=== PATIENT | female | born 1985 | race Caucasian/White ===

== ENCOUNTER 2021-02-12 10:52 | Emergency (ER) | payer SELFPAY ==
--- NOTE | 2021-02-12 10:57 | EDM.PDOC ---
ED HPI GENERAL MEDICAL PROBLEM - General Chief Complaint: Behavioral/Psych Stated Complaint: MENTAL HEALTH Time Seen by Provider: 02/12/21 10:56 Source of Information: Reports: Patient, Other (Mental health worker) History Limitations: Reports: Other (Delusional) - History of Present Illness INITIAL COMMENTS - FREE TEXT/NARRATIVE: 35-year-old female past medical history schizophrenia presents for psychosis. History is from both patient and [facility] services social services aide. Per [facility] social welfare research worker patient called the police and was brought to her for mental health evaluation. Patient expressed delusional believes about people watching her, reflections in her ceiling vents, people reading her mind, hallucinating her , stating she was a cat and that she was about to have kittens. She was noted to have very scattered thoughts and was tearful at times. On my interview patient confirms these delusions. She states that her killed himself earlier this year and that she stopped taking her psychiatric medications soon after in October. She notes that she has been hospitalized in the past for her schizophrenia. She states that she is overwhelmed and worried that she is going to do something bad. She does deny suicidal or homicidal ideation. She did endorse to mental health general administrator that she used methamphetamine yesterday. "everywhere" Pain Score (Numeric/FACES): 8 - Related Data Allergies Allergy/AdvReac Type Severity Reaction Status Date / Time No Known Allergies Allergy Verified 02/12/21 11:08 Home Meds: Home Meds . [No Known Home Meds] 02/12/21 [History] ED ROS GENERAL - Review of Systems Review Of Systems: Comprehensive ROS is negative, except as noted in HPI. ED EXAM, GENERAL - Physical Exam Exam: See Below Exam Limited By: No Limitations General Appearance: Alert, WD/WN, Anxious Eye Exam: Bilateral Eye: EOMI, PERRL Ears: Hearing Grossly Normal Throat/Mouth: Normal Voice, No Airway Compromise Head: Atraumatic, Normocephalic Neck: Normal Inspection Respiratory/Chest: No Respiratory Distress, Lungs Clear, Normal Breath Sounds, No Accessory Muscle Use Cardiovascular: Normal Peripheral Pulses, Regular Rate, Rhythm GI/Abdominal: Soft, Non-Tender Extremities: Normal Inspection Neurological: Alert Psychiatric: Anxious, Tearful, Other (delusional thoughts) Skin Exam: Warm, Dry, Other (multiple skin excoriations consistent with methamphetamine abuse; scabbed lesion on L breast roughly 1-cm without surrounding erythema) Course - Vital Signs Last Recorded V/S: Last Vital Signs Temp 97.9 F 02/12/21 11:09 Pulse 90 02/12/21 11:09 Resp 18 02/12/21 11:09 BP 179/101 H 02/12/21 11:09 Pulse Ox 98 02/12/21 11:09 - Orders/Labs/Meds Orders: Active Orders 24 hr Category Date Time Status CULTURE URINE [MREF] Stat Lab 02/12/21 11:22 Received Labs: Laboratory Tests 02/12/21 02/12/21 02/12/21 Range/Units 11:00 11:14 11:14 WBC 8.76 (4.0-11.0) K/uL RBC 4.54 (4.30-5.90) M/uL Hgb 14.5 (12.0-16.0) g/dL Hct 40.3 (36.0-46.0) % MCV 88.8 (80.0-98.0) fL MCH 31.9 (27.0-32.0) pg MCHC 36.0 (31.0-37.0) g/dL RDW Std Deviation 39.7 (28.0-62.0) fl RDW Coeff of Romulo 12 (11.0-15.0) % Plt Count 269 (150-400) K/uL MPV 9.10 (7.40-12.00) fL Neut % (Auto) 62.2 (48.0-80.0) % Lymph % (Auto) 24.1 (16.0-40.0) % Clayton % (Auto) 12.3 (0.0-15.0) % Eos % (Auto) 0.7 (0.0-7.0) % Baso % (Auto) 0.7 (0.0-1.5) % Neut # (Auto) 5.5 (1.4-5.7) K/uL Lymph # (Auto) 2.1 (0.6-2.4) K/uL Clayton # (Auto) 1.1 H (0.0-0.8) K/uL Eos # (Auto) 0.1 (0.0-0.7) K/uL Baso # (Auto) 0.1 (0.0-0.1) K/uL Nucleated RBC % 0.0 /100WBC Nucleated RBCs # 0 K/uL Sodium 141 (136-145) mmol/L Potassium 3.1 L (3.5-5.1) mmol/L Chloride 103 (98-107) mmol/L Carbon Dioxide 25.5 (21.0-32.0) mmol/L BUN 9 (7.0-18.0) mg/dL Creatinine 0.8 (0.6-1.0) mg/dL Est Cr Clr Drug Dosing TNP Estimated GFR (MDRD) > 60.0 ml/min Glucose 111 H (74-106) mg/dL Calcium 8.8 (8.5-10.1) mg/dL Total Bilirubin 0.9 (0.2-1.0) mg/dL AST 28 (15-37) IU/L ALT 38 (14-63) IU/L Alkaline Phosphatase 58 (46-116) U/L Total Protein 7.2 (6.4-8.2) g/dL Albumin 4.0 (3.4-5.0) g/dL Globulin 3.2 (2.6-4.0) g/dL Albumin/Globulin Ratio 1.3 (0.9-1.6) TSH, Ultra Sensitive 1.61 (0.36-3.74) uIU/mL Urine Color Urine Appearance Urine pH (5.0-8.0) Ur Specific Mentor (1.001-1.035) Urine Protein (NEGATIVE) mg/dL Urine Glucose (UA) (NEGATIVE) mg/dL Urine Ketones (NEGATIVE) mg/dL Urine Occult Blood (NEGATIVE) Urine Nitrite (NEGATIVE) Urine Bilirubin (NEGATIVE) Urine Urobilinogen (<2.0) EU/dL Ur Leukocyte Esterase (NEGATIVE) Urine RBC (0-2/HPF) Urine WBC (0-5/HPF) Ur Epithelial Cells (NONE-FEW) Urine Bacteria (NEGATIVE) Urine Mucus (NONE-MOD) Urine HCG, Qual (NEGATIVE) Salicylates 2.3 (0-20) mg/dL Urine Opiates Screen (NEGATIVE) Ur Oxycodone Screen (NEGATIVE) Urine Methadone Screen (NEGATIVE) Acetaminophen <2.0 ug/mL Ur Barbiturates Screen (NEGATIVE) Ur Phencyclidine Scrn (NEGATIVE) Ur Amphetamine Screen (NEGATIVE) U Methamphetamines Scrn (NEGATIVE) U Benzodiazepines Scrn (NEGATIVE) U Cocaine Metab Screen (NEGATIVE) U Marijuana (THC) Screen (NEGATIVE) Ethyl Alcohol < 3.0 mg/dL SARS-CoV-2 RNA (GREG) NEGATIVE (NEGATIVE) 02/12/21 02/12/21 02/12/21 Range/Units 11:22 11:22 11:22 WBC (4.0-11.0) K/uL RBC (4.30-5.90) M/uL Hgb (12.0-16.0) g/dL Hct (36.0-46.0) % MCV (80.0-98.0) fL MCH (27.0-32.0) pg MCHC (31.0-37.0) g/dL RDW Std Deviation (28.0-62.0) fl RDW Coeff of Romulo (11.0-15.0) % Plt Count (150-400) K/uL MPV (7.40-12.00) fL Neut % (Auto) (48.0-80.0) % Lymph % (Auto) (16.0-40.0) % Clayton % (Auto) (0.0-15.0) % Eos % (Auto) (0.0-7.0) % Baso % (Auto) (0.0-1.5) % Neut # (Auto) (1.4-5.7) K/uL Lymph # (Auto) (0.6-2.4) K/uL Clayton # (Auto) (0.0-0.8) K/uL Eos # (Auto) (0.0-0.7) K/uL Baso # (Auto) (0.0-0.1) K/uL Nucleated RBC % /100WBC Nucleated RBCs # K/uL Sodium (136-145) mmol/L Potassium (3.5-5.1) mmol/L Chloride (98-107) mmol/L Carbon Dioxide (21.0-32.0) mmol/L BUN (7.0-18.0) mg/dL Creatinine (0.6-1.0) mg/dL Est Cr Clr Drug Dosing Estimated GFR (MDRD) ml/min Glucose (74-106) mg/dL Calcium (8.5-10.1) mg/dL Total Bilirubin (0.2-1.0) mg/dL AST (15-37) IU/L ALT (14-63) IU/L Alkaline Phosphatase (46-116) U/L Total Protein (6.4-8.2) g/dL Albumin (3.4-5.0) g/dL Globulin (2.6-4.0) g/dL Albumin/Globulin Ratio (0.9-1.6) TSH, Ultra Sensitive (0.36-3.74) uIU/mL Urine Color YELLOW Urine Appearance SLT CLOUDY Urine pH 6.0 (5.0-8.0) Ur Specific Mentor >= 1.030 (1.001-1.035) Urine Protein TRACE H (NEGATIVE) mg/dL Urine Glucose (UA) NEGATIVE (NEGATIVE) mg/dL Urine Ketones 15 H (NEGATIVE) mg/dL Urine Occult Blood TRACE-INTACT H (NEGATIVE) Urine Nitrite POSITIVE H (NEGATIVE) Urine Bilirubin SMALL H (NEGATIVE) Urine Urobilinogen 1.0 (<2.0) EU/dL Ur Leukocyte Esterase TRACE H (NEGATIVE) Urine RBC 0-5 (0-2/HPF) Urine WBC 5-10 (0-5/HPF) Ur Epithelial Cells MODERATE (NONE-FEW) Urine Bacteria 2+ H (NEGATIVE) Urine Mucus MODERATE (NONE-MOD) Urine HCG, Qual NEGATIVE (NEGATIVE) Salicylates (0-20) mg/dL Urine Opiates Screen NEGATIVE (NEGATIVE) Ur Oxycodone Screen NEGATIVE (NEGATIVE) Urine Methadone Screen NEGATIVE (NEGATIVE) Acetaminophen ug/mL Ur Barbiturates Screen NEGATIVE (NEGATIVE) Ur Phencyclidine Scrn NEGATIVE (NEGATIVE) Ur Amphetamine Screen POSITIVE (NEGATIVE) U Methamphetamines Scrn POSITIVE (NEGATIVE) U Benzodiazepines Scrn NEGATIVE (NEGATIVE) U Cocaine Metab Screen NEGATIVE (NEGATIVE) U Marijuana (THC) Screen POSITIVE (NEGATIVE) Ethyl Alcohol mg/dL SARS-CoV-2 RNA (GREG) (NEGATIVE) Meds: Medications Discontinued Medications Generic Name Dose Route Start Last Admin Trade Name Freq PRN Reason Stop Dose Admin Cephalexin 500 mg 02/12/21 12:00 02/12/21 12:09 Cephalexin 500 Mg Cap PO 02/12/21 12:01 500 mg ONETIME ONE Administration Olanzapine 10 mg/ Sterile 2.1 mls @ 999 mls/hr 02/12/21 11:12 02/12/21 11:17 Water IM 02/12/21 11:13 999 mls/hr ONETIME ONE Administration Potassium Chloride 40 meq 02/12/21 12:04 02/12/21 12:09 Potassium Chloride 10% 20 Meq/15 Ml Soln 30 Ml Ud Cup PO 02/12/21 12:05 40 meq ONETIME ONE Administration - Re-Assessments/Exams Free Text/Narrative Re-Assessment/Exam: 02/12/21 11:16 Patient presents with psychosis likely secondary to known history of schizophrenia. Patient will require hospitalization. Will get psychiatric clearance labs. Will give a dose of IM Zyprexa to help with symptoms while in the emergency department. 02/12/21 12:01 Patient with evidence of urinary tract infection. Keflex 500 mg ordered in the emergency department. 02/12/21 12:06 Patient is medically cleared for psychiatric admission. She was slightly hypokalemic to 3.1 so 40meq K ordered. Will reach out to psychiatry hospital for transfer of care. 02/12/21 12:10 [facility] does not have any bed availabilities; [facility] does have a bed. 02/12/21 12:24 Alice Thomas CURB SUPERVISOR at [facility] agrees to admit patient under her service Departure - Departure Time of Disposition: 12:24 Disposition: DC/Tfer to Psych Hosp/Unit 65 Condition: Fair Clinical Impression: Psychosis Qualifiers: Psychosis type: schizophrenia Schizophrenia type: unspecified Qualified Code(s): F20.9 - Schizophrenia, unspecified - Discharge Information Referrals: PCP,None [Primary Care Provider] - Forms: ED Department Discharge Sepsis Event Note (ED) - Focused Exam Vital Signs: Vital Signs Temp Pulse Resp BP Pulse Ox 02/12/21 11:09 97.9 F 90 18 179/101 H 98
[2021-02-12] MEDS ORDERED: OLANZapine 10 MG in Water For Injection, Sterile 2.1 ML IM ONE (11:12)
[2021-02-12 11:50] LABS: ACETAMINOPHEN <2.0 ug/mL; BLOOD UREA NITROGEN,BUN 9 mg/dL (7.0-18.0); CARBON DIOXIDE,CO2 25.5 mmol/L (21.0-32.0); CHLORIDE,CL 103 mmol/L (98-107); GLUCOSE RANDOM 111 mg/dL (74-106); POTASSIUM,K 3.1 mmol/L (3.5-5.1); SODIUM,NA 141 mmol/L (136-145)
[2021-02-12] MEDS ORDERED: Cephalexin 500 MG Cap PO ONE (12:00)
[2021-02-12] MEDS ORDERED: Potassium Chloride 10% 20 MEQ/15 ML Soln 30 ML UD Cup PO ONE (12:04)
== END 2021-02-12 14:48 ==
LOC: MW.ED 10:52
DX: F20.9 Schizophrenia, unspecified (principal); Z20.822 Contact with and (suspected) exposure to COVID-19
CPT/HCPCS: 36415; 80053; 80143; 80179; 80305; 80307; 81001; 81025; 84443; 85025; 87086; 87088; 87186; 87635; 96372; 99284; A9270; J3490; U0002

== ENCOUNTER 2021-09-14 14:37 | Emergency (ER) | payer SELFPAY ==
[2021-09-14] MEDS ORDERED: LORazepam 2 MG/ML Syringe IVPUSH ONE (15:01)
[2021-09-14] MEDS ORDERED: LORazepam 2 MG/ML Syringe IM ONE ×2 (15:13→15:35)
[2021-09-14] MEDS ORDERED: LORazepam 2 MG/ML SDV IM ONE (15:30)
[2021-09-14] MEDS ORDERED: LORazepam 2 MG/ML SDV ONE (15:30)
[2021-09-14 15:50] LABS: ACETAMINOPHEN <2.0 ug/mL; BLOOD UREA NITROGEN,BUN 11 mg/dL (7.0-18.0); CARBON DIOXIDE,CO2 20.8 mmol/L (21.0-32.0); CHLORIDE,CL 105 mmol/L (98-107); GLUCOSE RANDOM 92 mg/dL (74-106); POTASSIUM,K 3.3 mmol/L (3.5-5.1); SODIUM,NA 141 mmol/L (136-145)
== END 2021-09-14 17:42 ==
LOC: MW.ED 14:37
DX: F20.9 Schizophrenia, unspecified (principal); F15.20 Other stimulant dependence, uncomplicated; Z20.822 Contact with and (suspected) exposure to COVID-19
CPT/HCPCS: 36415; 80053; 80143; 80179; 80305; 80307; 81001; 81025; 83735; 84443; 85025; 87635; 96372; 99284; J2060; U0002

== ENCOUNTER 2021-09-16 16:53 | Emergency (ER) | payer SELFPAY | END 2021-09-16 17:41 | disposition left against medical advice (07) | LOC: MW.ED 16:53 | DX: Z53.21 Procedure and treatment not carried out due to patient leaving prior to being seen by health care provider (principal) ==

== ENCOUNTER 2021-11-04 21:47 | Emergency (ER) | payer SELFPAY | END 2021-11-04 23:01 | disposition left against medical advice (07) | LOC: MW.ED 21:47 | DX: Z53.21 Procedure and treatment not carried out due to patient leaving prior to being seen by health care provider (principal) ==

== ENCOUNTER 2021-11-07 18:01 | Emergency (ER) | payer SELFPAY | END 2021-11-07 22:01 | disposition left against medical advice (07) | LOC: MW.ED 18:01 | DX: Z53.21 Procedure and treatment not carried out due to patient leaving prior to being seen by health care provider (principal) ==

== ENCOUNTER 2021-11-08 14:05 | Emergency (ER) | payer SELFPAY ==
[2021-11-08] MEDS ORDERED: Dexamethasone 10 MG/ML SDV IVPUSH ONE (14:20)
[2021-11-08] MEDS ORDERED: LORazepam 1 MG Tab PO ONE (14:54)
== END 2021-11-08 15:53 | disposition home or self-care (01) ==
LOC: MW.ED 14:05
DX: F41.9 Anxiety disorder, unspecified (principal); Z79.899 Other long term (current) drug therapy; Z88.0 Allergy status to penicillin; Z88.8 Allergy status to other drugs, medicaments and biological substances
CPT/HCPCS: 99283; A9270; 99284

== ENCOUNTER 2021-12-21 09:30 | Emergency (ER) | payer SELFPAY ==
[2021-12-21] MEDS ORDERED: LORazepam 1 MG Tab PO ONE (10:52)
== END 2021-12-21 11:16 | disposition home or self-care (01) ==
LOC: MW.ED 09:30
DX: F41.9 Anxiety disorder, unspecified (principal); Z88.0 Allergy status to penicillin; Z88.1 Allergy status to other antibiotic agents; Z79.899 Other long term (current) drug therapy; Z90.710 Acquired absence of both cervix and uterus
CPT/HCPCS: 99282; 99283

== ENCOUNTER 2021-12-22 16:43 | Emergency (ER) | payer SELFPAY ==
[2021-12-22] MEDS ORDERED: Lidocaine 1% 5 ML VIAL INJECT ONE (18:04)
[2021-12-22] MEDS ORDERED: Acetaminophen/HYDROcodone 325-5 MG Tab PO ONE (19:11)
[2021-12-22] MEDS: Ketorolac 60 MG/2 ML SDV IM ONE ×2 (19:25→19:47)
== END 2021-12-22 19:48 | disposition home or self-care (01) ==
LOC: MW.ED 16:43
DX: S01.81XA Laceration without foreign body of other part of head, initial encounter (principal); Z88.0 Allergy status to penicillin; Z88.1 Allergy status to other antibiotic agents; Y04.0XXA Assault by unarmed brawl or fight, initial encounter
CPT/HCPCS: 12011; 70450; 70486; 72125; 99283; A9270; 99284; J1885

== ENCOUNTER 2021-12-24 09:17 | Emergency (ER) | payer SELFPAY ==
[2021-12-24] MEDS ORDERED: OLANZapine 5 MG Tab.DIS PO STA (09:56)
[2021-12-24 10:39] LABS: ACETAMINOPHEN <2.0 ug/mL; BLOOD UREA NITROGEN,BUN 8 mg/dL (7.0-18.0); CARBON DIOXIDE,CO2 28.3 mmol/L (21.0-32.0); CHLORIDE,CL 103 mmol/L (98-107); GLUCOSE RANDOM 85 mg/dL (74-106); POTASSIUM,K 3.9 mmol/L (3.5-5.1); SODIUM,NA 139 mmol/L (136-145)
[2021-12-24 10:41] LABS: ESTIMATED GFR 75 mL/min (>60)
[2021-12-24] MEDS ORDERED: OLANZapine 5 MG Tab PO ONE (22:02)
[2021-12-25] MEDS ORDERED: ARIPiprazole 10 MG Tab PO STA (08:11)
[2021-12-25] MEDS ORDERED: OLANZapine 5 MG Tab ONE ×2 (10:53→18:46)
[2021-12-25] MEDS ORDERED: OLANZapine 5 MG Tab PO ONE ×3 (10:54→18:45)
[2021-12-25] MEDS ORDERED: Nicotine 21 MG/24 Hr Patch TRDERM ONE ×2 (11:00→17:43)
[2021-12-25] MEDS ORDERED: Nicotine Polacrilex 2 MG Gum CHEW STA (11:08)
[2021-12-25] MEDS: Nicotine Polacrilex 4 MG Gum CHEW STA ×2 (11:39→16:15)
[2021-12-25] MEDS ORDERED: OLANZapine 5 MG Tab.DIS PO ONE (16:27)
[2021-12-25] MEDS ORDERED: LORazepam 2 MG/ML SDV IM ONE (17:31)
== END 2021-12-25 18:45 | disposition still patient (30) ==
LOC: MW.ED 09:17
DX: F20.9 Schizophrenia, unspecified (principal); F19.10 Other psychoactive substance abuse, uncomplicated; Z88.0 Allergy status to penicillin; Z88.1 Allergy status to other antibiotic agents; Z79.899 Other long term (current) drug therapy; Z90.710 Acquired absence of both cervix and uterus; Z20.822 Contact with and (suspected) exposure to COVID-19
CPT/HCPCS: 36415; 80053; 80143; 80179; 80305; 80307; 81003; 81025; 84443; 85025; 87635; 96372; 99284; A9270; J2060; 99285; U0002

== ENCOUNTER 2022-02-20 10:55 | Emergency (ER) | payer BC, MEDICAID ==
[2022-02-20] MEDS ORDERED: Haloperidol Lactate 5 MG/ML SDV IM ONE (10:56)
[2022-02-20] MEDS ORDERED: diphenhydrAMINE 50 MG/ML SDV IM ONE (10:57)
[2022-02-20] MEDS ORDERED: diphenhydrAMINE 50 MG/ML SDV ONE (10:57)
[2022-02-20] MEDS ORDERED: Haloperidol Lactate 5 MG/ML SDV ONE (10:57)
[2022-02-20] MEDS ORDERED: LORazepam 2 MG/ML SDV IM ONE (10:57)
[2022-02-20] MEDS ORDERED: LORazepam 2 MG/ML SDV ONE (10:58)
[2022-02-20 13:09] LABS: ACETAMINOPHEN <2.0 ug/mL; BLOOD UREA NITROGEN,BUN 6 mg/dL (7.0-18.0); CARBON DIOXIDE,CO2 26.5 mmol/L (21.0-32.0); CHLORIDE,CL 104 mmol/L (98-107); GLUCOSE RANDOM 90 mg/dL (74-106); SODIUM,NA 141 mmol/L (136-145)
[2022-02-20 13:25] LABS: ESTIMATED GFR 98 mL/min (>60)
[2022-02-21] MEDS ORDERED: Water For Injection, Sterile 20 ML SDV INJECT ONE (08:38)
[2022-02-21] MEDS ORDERED: Ziprasidone Mesylate 20 MG Vial IM ONE (08:38)
== END 2022-02-21 09:00 ==
LOC: MW.ED 10:55
DX: F23 Brief psychotic disorder (principal); F15.10 Other stimulant abuse, uncomplicated; Z20.822 Contact with and (suspected) exposure to COVID-19; Z90.710 Acquired absence of both cervix and uterus; Z79.899 Other long term (current) drug therapy; Z88.0 Allergy status to penicillin; Z88.1 Allergy status to other antibiotic agents
CPT/HCPCS: 36415; 80053; 80143; 80179; 80305; 80307; 81001; 83735; 84443; 84703; 85025; 87635; 93005; 96372; 99285; J1200; J1630; J2060; J3486; 93010; U0002

== ENCOUNTER 2022-03-13 18:13 | Emergency (ER) | payer MEDICAID, OTHER ==
[2022-03-13] MEDS ORDERED: Sodium Chloride 0.9% 1,000 ML IV ONE (18:18)
[2022-03-13] MEDS ORDERED: diphenhydrAMINE 50 MG/ML SDV IVPUSH ONE (18:19)
[2022-03-13] MEDS ORDERED: Haloperidol Lactate 5 MG/ML SDV IM ONE (18:19)
[2022-03-13] MEDS ORDERED: LORazepam 2 MG/ML SDV IM ONE (18:19)
[2022-03-13 19:01] LABS: ACETAMINOPHEN <2.0 ug/mL; BLOOD UREA NITROGEN,BUN 9 mg/dL (7.0-18.0); CARBON DIOXIDE,CO2 23.7 mmol/L (21.0-32.0); CHLORIDE,CL 105 mmol/L (98-107); ESTIMATED GFR 85 mL/min (>60); GLUCOSE RANDOM 101 mg/dL (74-106); SODIUM,NA 139 mmol/L (136-145)
[2022-03-13] MEDS ORDERED: Potassium Chloride 20 MEQ Tab.ER PO ONE (21:18)
[2022-03-14] MEDS ORDERED: Potassium Chloride 20 MEQ Tab.ER ONE (15:21)
== END 2022-03-14 15:54 | disposition home or self-care (01) ==
LOC: MW.ED 18:13
DX: E87.6 Hypokalemia (principal); F20.9 Schizophrenia, unspecified; F19.10 Other psychoactive substance abuse, uncomplicated; Z88.0 Allergy status to penicillin; Z88.1 Allergy status to other antibiotic agents; Z79.899 Other long term (current) drug therapy
CPT/HCPCS: 36415; 80053; 80143; 80179; 80305; 80307; 81003; 81025; 84443; 85025; 93005; 96361; 96372; 96374; 99285; A9270; J1200; J1630; J2060; J7030

== ENCOUNTER 2022-03-19 12:56 | Emergency (ER) | payer MEDICAID ==
[2022-03-19] MEDS ORDERED: LORazepam 1 MG Tab PO ONE (14:09)
== END 2022-03-19 14:26 | disposition home or self-care (01) ==
LOC: MW.ED 12:56
DX: F41.9 Anxiety disorder, unspecified (principal); Z90.710 Acquired absence of both cervix and uterus; Z88.0 Allergy status to penicillin; Z88.1 Allergy status to other antibiotic agents; Z79.899 Other long term (current) drug therapy
CPT/HCPCS: 99283; A9270

== ENCOUNTER 2022-08-03 17:39 | Emergency (ER) | payer MEDICAID ==
[2022-08-03] MEDS ORDERED: traMADol 50 MG Tab PO ONE (18:21)
[2022-08-03] MEDS ORDERED: Sulfamethoxazole/Trimethoprim 800-160 MG Tab PO ONE (18:21)
[2022-08-03 20:03] LABS: C. TRACHOMATIS BY PCR NOT DETECTED; N. GONORRHOEAE BY PCR NOT DETECTED
== END 2022-08-03 18:34 | disposition home or self-care (01) ==
LOC: MW.ED 17:39
DX: L73.9 Follicular disorder, unspecified (principal); F17.210 Nicotine dependence, cigarettes, uncomplicated; Z88.0 Allergy status to penicillin; Z88.8 Allergy status to other drugs, medicaments and biological substances; Z88.1 Allergy status to other antibiotic agents
CPT/HCPCS: 87480; 87491; 87510; 87529; 87591; 87660; 99283; A9270

== ENCOUNTER 2022-08-08 14:20 | Emergency (ER) | payer MEDICAID ==
[2022-08-08] MEDS ORDERED: Sodium Chloride 0.9% 1,000 ML IV ONE (14:34)
[2022-08-08] MEDS ORDERED: Ketorolac 30 MG/ML SDV IVPUSH ONE (14:34)
[2022-08-08] MEDS ORDERED: Ondansetron 4 MG/2 ML SDV IVPUSH ONE (14:34)
[2022-08-08 15:34] LABS: CARBON DIOXIDE,CO2 27.3 mmol/L (21.0-32.0); POTASSIUM,K 3.7 mmol/L (3.5-5.1)
[2022-08-08 15:35] LABS: CORONAVIRUS COVID-19 NAA NEGATIVE (NEGATIVE); INFLUENZA A NAA NEGATIVE (NEGATIVE); INFLUENZA B NAA NEGATIVE (NEGATIVE)
== END 2022-08-08 18:07 | disposition home or self-care (01) ==
LOC: MW.ED 14:20
DX: R53.83 Other fatigue (principal); F19.10 Other psychoactive substance abuse, uncomplicated; Z88.0 Allergy status to penicillin; Z88.1 Allergy status to other antibiotic agents; Z20.822 Contact with and (suspected) exposure to COVID-19
CPT/HCPCS: 0240U; 36415; 80053; 80305-QW; 81001; 81025; 83605; 83690; 85025; 87040; 96361; 96374; 96375; 99283; 99284-25; J1885; J2405; J7030

== ENCOUNTER 2023-06-25 17:53 | Emergency (ER) | payer SELFPAY ==
[2023-06-25] MEDS: OLANZapine 10 MG in Water For Injection, Sterile 2.1 ML IM ONE (18:05)
== END 2023-06-25 19:05 | disposition left against medical advice (07) ==
LOC: MW.ED 17:53
DX: R44.0 Auditory hallucinations (principal); R44.1 Visual hallucinations; Z88.1 Allergy status to other antibiotic agents; Z88.0 Allergy status to penicillin; Z79.899 Other long term (current) drug therapy
CPT/HCPCS: 93005; 96372; 99285; J2405; 93010; 99283; J3490

== ENCOUNTER → 2023-10-24 | Emergency (ER) | payer MEDICAID ==
[2023-10-24 17:12] LABS: BASOPHILS ABSOLUTE AUTO 0.11 K/uL (0.00-0.20); BASOPHILS PERCENT AUTO 0.9 % (0.0-1.0); EOSINOPHILS PERCENT AUTO 1.6 % (0.0-6.0); HEMATOCRIT 43.7 % (37.0-47.0); HEMOGLOBIN 15.4 g/dL (12.0-16.0); IMMATURE GRAN ABSOLUTE AUTO 0.04 K/uL (0.00-0.05); IMMATURE GRAN PERCENT AUTO 0.3 % (0.0-0.4); LYMPHOCYTES ABSOLUTE AUTO 3.38 K/uL (1.00-4.80); MEAN CORPUSCULAR HEMOGLOBIN 31.1 pg (28.0-32.0); MEAN CORPUSCULAR HGB CONC 35.2 g/dL (32.0-36.0); MEAN CORPUSCULAR VOLUME 88.3 fL (83.0-99.0); MEAN PLATELET VOLUME 8.4 fL (9.4-12.3); MONOCYTES ABSOLUTE AUTO 1.02 K/uL (0.00-0.80); MONOCYTES PERCENT AUTO 8.2 % (0.0-8.0); NEUTROPHILS ABSOLUTE AUTO 7.75 K/uL (1.80-7.70); PLATELET COUNT,PLT 289 K/uL (150-400); RED BLOOD CELL COUNT 4.95 M/uL (4.10-5.30)
[2023-10-24] MEDS: LORazepam 1 MG Tab PO ONE (17:16)
[2023-10-24] MEDS: Sodium Chloride 0.9% 1,000 ML IV ONE (17:18)
[2023-10-24 17:57] LABS: A/G RATIO 1.1 (0.9-1.6); ALBUMIN 3.9 g/dL (3.4-5.0); BILIRUBIN TOTAL 0.5 mg/dL (0.2-1.0); CARBON DIOXIDE,CO2 26.7 mmol/L (21.0-32.0); EST CRCL DRUG DOSING (CG) 63.1 mL/min; POTASSIUM,K 4.7 mmol/L (3.5-5.1); PROTEIN TOTAL,TP 7.5 g/dL (6.4-8.2); TSH ULTRASENSITIVE 1.19 uIU/mL (0.36-3.74)
[2023-10-24] MEDS: OLANZapine 5 MG Tab.DIS PO ONE (18:41)
== END | disposition home or self-care (01) ==
LOC: MW.ED 16:18
DX: R45.4 Irritability and anger (principal); F17.210 Nicotine dependence, cigarettes, uncomplicated; Z75.8 Other problems related to medical facilities and other health care; Z88.0 Allergy status to penicillin; Z88.1 Allergy status to other antibiotic agents; Z88.8 Allergy status to other drugs, medicaments and biological substances; Z90.710 Acquired absence of both cervix and uterus
CPT/HCPCS: 36415; 80053; 84443; 85025; 99283; A9270; J7030

== ENCOUNTER 2024-02-21 10:59 | Emergency (ER) | payer MEDICAID ==
[2024-02-21] MEDS: OLANZapine 5 MG Tab PO ONE ×2 (12:14→12:42)
[2024-02-21] MEDS: LORazepam 1 MG Tab PO ONE (12:14)
== END 2024-02-21 14:26 | disposition home or self-care (01) ==
LOC: MW.ED 10:59
DX: F20.9 Schizophrenia, unspecified (principal); Z90.49 Acquired absence of other specified parts of digestive tract; Z79.899 Other long term (current) drug therapy; Z88.1 Allergy status to other antibiotic agents; Z88.0 Allergy status to penicillin
CPT/HCPCS: 99284; A9270; 99283

== ENCOUNTER 2024-02-22 18:26 | Emergency (ER) | payer MEDICAID ==
[2024-02-22] MEDS ORDERED: Sodium Chloride 0.9% 10 ML Syringe FLUSH PRN (18:39)
[2024-02-22] MEDS ORDERED: Sodium Chloride 0.9% 2.5 ML Syringe FLUSH PRN (18:39)
[2024-02-22] MEDS: Ziprasidone Mesylate 20 MG in Water For Injection, Sterile 1.2 ML IM ONE (18:55)
[2024-02-22] MEDS: LORazepam 1 MG Tab PO ONE (19:43)
[2024-02-22 19:54] LABS: APPEARANCE,URINE CLEAR; BILIRUBIN,URINE NEGATIVE (NEGATIVE); COLOR,URINE YELLOW; GLUCOSE,URINE NEGATIVE (NEGATIVE); KETONES,URINE NEGATIVE (NEGATIVE); LEUKOCYTE ESTERASE,URINE SMALL (NEGATIVE); NITRITE,URINE NEGATIVE (NEGATIVE); OCCULT BLOOD,URINE NEGATIVE (NEGATIVE); PROTEIN,URINE NEGATIVE (NEGATIVE); UROBILINOGEN,URINE 0.2 EU/dL (<2.0)
[2024-02-22 19:57] LABS: BASOPHILS ABSOLUTE AUTO 0.08 K/uL (0.00-0.20); BASOPHILS PERCENT AUTO 0.7 % (0.0-1.0); EOSINOPHILS ABSOLUTE AUTO 0.06 K/uL (0.00-0.45); EOSINOPHILS PERCENT AUTO 0.5 % (0.0-6.0); HEMATOCRIT 42.7 % (37.0-47.0); IMMATURE GRAN ABSOLUTE AUTO 0.03 K/uL (0.00-0.05); IMMATURE GRAN PERCENT AUTO 0.3 % (0.0-0.4); LYMPHOCYTES ABSOLUTE AUTO 2.83 K/uL (1.00-4.80); LYMPHOCYTES PERCENT AUTO 24.7 % (24.0-44.0); MEAN CORPUSCULAR HEMOGLOBIN 30.7 pg (28.0-32.0); MEAN CORPUSCULAR HGB CONC 35.1 g/dL (32.0-36.0); MEAN CORPUSCULAR VOLUME 87.5 fL (83.0-99.0); MEAN PLATELET VOLUME 8.3 fL (9.4-12.3); MONOCYTES ABSOLUTE AUTO 1.21 K/uL (0.00-0.80); MONOCYTES PERCENT AUTO 10.6 % (0.0-8.0); NEUTROPHILS ABSOLUTE AUTO 7.25 K/uL (1.80-7.70); NEUTROPHILS PERCENT AUTO 63.2 % (41.0-71.0); PLATELET COUNT,PLT 288 K/uL (150-400); RED BLOOD CELL COUNT 4.88 M/uL (4.10-5.30); WHITE BLOOD CELL COUNT,WBC 11.46 K/uL (3.9-11.3)
[2024-02-22 20:03] LABS: BACTERIA,URINE FEW (NEGATIVE); MUCUS,URINE LIGHT (NONE-MOD); RBC,URINE 0-1 (0-2/HPF); SQUAMOUS EPITHELIAL CELLS,UR FEW
[2024-02-22 20:04] LABS: AMPHETAMINES SCREEN, URINE PRESUMPTIVE POSITIVE (CUTOFF=500); BARBITURATE SCREEN,URINE NEGATIVE (CUTOFF=200); BENZODIAZEPINES SCREEN,URINE NEGATIVE (CUTOFF=150); BUPRENORPHINE SCREEN,URINE NEGATIVE (CUTOFF=10); METHADONE SCREEN, URINE NEGATIVE (CUTOFF=200); METHAMPHETAMINES SCREEN, URINE PRESUMPTIVE POSITIVE (CUTOFF=500); OXYCODONE SCREEN,URINE NEGATIVE (CUT0FF=100); PCP SCREEN,URINE NEGATIVE (CUTOFF=25); THC SCREEN,URINE 20 NG/ML PRESUMPTIVE POSITIVE (CUTOFF=50)
[2024-02-22 20:10] LABS: INR 1.04 (0.86-1.11)
[2024-02-22 20:27] LABS: A/G RATIO 1.3 (0.9-1.6); ACETAMINOPHEN <2.0 ug/mL; ALANINE AMINOTRANSFERASE,ALT 24 IU/L (14-63); ALKALINE PHOSPHATASE 74 U/L (46-116); ASPARTATE AMNIOTRANSFERASE,AST 15 IU/L (15-37); BILIRUBIN TOTAL 0.3 mg/dL (0.2-1.0); BLOOD UREA NITROGEN,BUN 16 mg/dL (7.0-18.0); CALCIUM 9.4 mg/dL (8.5-10.1); CHLORIDE,CL 106 mmol/L (98-107); ETHANOL BLOOD MEDICAL <3 mg/dL; GLUCOSE RANDOM 102 mg/dL (74-106); POTASSIUM,K 3.8 mmol/L (3.5-5.1); PROTEIN TOTAL,TP 7.2 g/dL (6.4-8.2); SALICYLATE 4.7 mg/dL (0.0-20.0); SODIUM,NA 143 mmol/L (136-145); TSH ULTRASENSITIVE 1.01 uIU/mL (0.36-3.74)
[2024-02-22 20:31] LABS: ESTIMATED GFR 74 mL/min (>60)
[2024-02-22] MEDS: Nicotine 21 MG/24 Hr Patch TRDERM SCH (23:21)
[2024-02-22] MEDS: OLANZapine 5 MG Tab PO ONE (23:42)
[2024-02-22] MEDS: diphenhydrAMINE 50 MG Cap PO ONE (23:43)
[2024-02-23] MEDS: Ziprasidone Mesylate 20 MG Vial ONE (05:30)
[2024-02-23] MEDS: Water For Injection, Sterile 20 ML SDV INJECT ONE (05:30)
== END 2024-02-23 11:06 ==
LOC: MW.ED 18:26
DX: F20.9 Schizophrenia, unspecified (principal); R45.1 Restlessness and agitation; Z90.710 Acquired absence of both cervix and uterus; Z79.899 Other long term (current) drug therapy; Z88.0 Allergy status to penicillin; Z88.1 Allergy status to other antibiotic agents
CPT/HCPCS: 36415; 80053; 80143; 80179; 80305; 80307; 81001; 81025; 84443; 85025; 85610; 87635; 93005; 96372; 99285; A9270; J3486; 93010; J3490; U0002

== ENCOUNTER 2024-05-29 19:32 | Emergency (ER) | payer MEDICAID ==
[2024-05-29] MEDS ORDERED: Sodium Chloride 0.9% 2.5 ML Syringe FLUSH PRN (22:01)
[2024-05-29] MEDS ORDERED: Sodium Chloride 0.9% 10 ML Syringe FLUSH PRN (22:01)
[2024-05-29] MEDS ORDERED: Sodium Chloride 0.9% 20 ML SDV IV PRN (22:01)
[2024-05-29] MEDS: Ziprasidone Mesylate 10 MG in Water For Injection, Sterile 1.2 ML IM ONE (22:23)
[2024-05-29] MEDS: LORazepam 2 MG/ML SDV IVPUSH ONE (22:23)
[2024-05-29] MEDS: Water For Injection, Sterile 20 ML SDV INJECT ONE (22:26)
[2024-05-29 22:27] LABS: EOSINOPHILS ABSOLUTE AUTO 0.28 K/uL (0.00-0.45); EOSINOPHILS PERCENT AUTO 2.8 % (0.0-6.0); HEMATOCRIT 38.5 % (37.0-47.0); HEMOGLOBIN 13.4 g/dL (12.0-16.0); IMMATURE GRAN ABSOLUTE AUTO 0.02 K/uL (0.00-0.05); IMMATURE GRAN PERCENT AUTO 0.2 % (0.0-0.4); LYMPHOCYTES ABSOLUTE AUTO 3.47 K/uL (1.00-4.80); LYMPHOCYTES PERCENT AUTO 34.5 % (24.0-44.0); MEAN CORPUSCULAR HEMOGLOBIN 30.2 pg (28.0-32.0); MEAN CORPUSCULAR HGB CONC 34.8 g/dL (32.0-36.0); MEAN CORPUSCULAR VOLUME 86.7 fL (83.0-99.0); MEAN PLATELET VOLUME 8.8 fL (9.4-12.3); MONOCYTES ABSOLUTE AUTO 1.05 K/uL (0.00-0.80); MONOCYTES PERCENT AUTO 10.4 % (0.0-8.0); NEUTROPHILS ABSOLUTE AUTO 5.15 K/uL (1.80-7.70); NEUTROPHILS PERCENT AUTO 51.1 % (41.0-71.0); PLATELET COUNT,PLT 258 K/uL (150-400); RED BLOOD CELL COUNT 4.44 M/uL (4.10-5.30); WHITE BLOOD CELL COUNT,WBC 10.07 K/uL (3.9-11.3)
[2024-05-29 22:59] LABS: ACETAMINOPHEN <2.0 ug/mL; ALANINE AMINOTRANSFERASE,ALT 20 IU/L (14-63); ALBUMIN 3.4 g/dL (3.4-5.0); ALKALINE PHOSPHATASE 72 U/L (46-116); ASPARTATE AMNIOTRANSFERASE,AST 12 IU/L (15-37); BILIRUBIN TOTAL 0.3 mg/dL (0.2-1.0); BLOOD UREA NITROGEN,BUN 11 mg/dL (7.0-18.0); CALCIUM 9.2 mg/dL (8.5-10.1); CARBON DIOXIDE,CO2 29.4 mmol/L (21.0-32.0); CHLORIDE,CL 102 mmol/L (98-107); CREATININE 0.9 mg/dL (0.6-1.0); EST CRCL DRUG DOSING (CG) 72.47 mL/min; GLUCOSE RANDOM 102 mg/dL (74-106); MAGNESIUM 1.8 mg/dL (1.8-2.4); POTASSIUM,K 3.5 mmol/L (3.5-5.1); PROTEIN TOTAL,TP 6.7 g/dL (6.4-8.2); SALICYLATE 6.6 mg/dL (0.0-20.0); SODIUM,NA 138 mmol/L (136-145)
[2024-05-29 23:00] LABS: ESTIMATED GFR 83 mL/min (>60); ETHANOL BLOOD MEDICAL < 3.0 mg/dL
[2024-05-29 23:01] LABS: AMPHETAMINES SCREEN, URINE PRESUMPTIVE POSITIVE (CUTOFF=500); BARBITURATE SCREEN,URINE NEGATIVE (CUTOFF=200); BENZODIAZEPINES SCREEN,URINE NEGATIVE (CUTOFF=150); BUPRENORPHINE SCREEN,URINE PRESUMPTIVE POSITIVE (CUTOFF=10); METHADONE SCREEN, URINE NEGATIVE (CUTOFF=200); METHAMPHETAMINES SCREEN, URINE PRESUMPTIVE POSITIVE (CUTOFF=500); OXYCODONE SCREEN,URINE NEGATIVE (CUT0FF=100); PCP SCREEN,URINE NEGATIVE (CUTOFF=25); THC SCREEN,URINE 20 NG/ML PRESUMPTIVE POSITIVE (CUTOFF=50)
[2024-05-29] MEDS: Midazolam 1 MG/ML 2 ML SDV IVPUSH ONE (23:19)
[2024-05-30 04:17] LABS: APPEARANCE,URINE CLEAR; COLOR,URINE YELLOW
[2024-05-30 04:18] LABS: GLUCOSE,URINE NEGATIVE (NEGATIVE); PROTEIN,URINE NEGATIVE (NEGATIVE)
[2024-05-30 04:19] LABS: BILIRUBIN,URINE NEGATIVE (NEGATIVE); KETONES,URINE NEGATIVE (NEGATIVE); LEUKOCYTE ESTERASE,URINE NEGATIVE (NEGATIVE); NITRITE,URINE NEGATIVE (NEGATIVE); OCCULT BLOOD,URINE NEGATIVE (NEGATIVE); UROBILINOGEN,URINE 0.2 EU/dL (<2.0)
== END 2024-05-30 07:09 | disposition home or self-care (01) ==
LOC: MW.ED 19:32
DX: F20.1 Disorganized schizophrenia (principal); Z90.710 Acquired absence of both cervix and uterus; Z79.899 Other long term (current) drug therapy; Z88.0 Allergy status to penicillin; Z88.1 Allergy status to other antibiotic agents; Z75.8 Other problems related to medical facilities and other health care
CPT/HCPCS: 36415; 80053; 80143; 80179; 80305; 80307; 81003; 81025; 83735; 84443; 85025; 87428; 93005; 96372; 96374; 96375; 99285; J2060; J2250; J3486; 93010; 99283

== ENCOUNTER 2024-05-30 23:52 | Emergency (ER) | payer MEDICAID ==
[2024-05-31] MEDS: Ziprasidone Mesylate 10 MG in Water For Injection, Sterile 1.2 ML IM ONE (01:12)
[2024-05-31] MEDS: Water For Injection, Sterile 20 ML SDV INJECT ONE (01:13)
[2024-05-31] MEDS: Midazolam 1 MG/ML 2 ML SDV IVPUSH ONE (01:13)
== END 2024-05-31 11:06 | disposition home or self-care (01) ==
LOC: MW.ED 23:52
DX: F20.1 Disorganized schizophrenia (principal); F17.210 Nicotine dependence, cigarettes, uncomplicated; Z90.710 Acquired absence of both cervix and uterus; Z88.0 Allergy status to penicillin; Z88.8 Allergy status to other drugs, medicaments and biological substances; Z79.899 Other long term (current) drug therapy; Z75.8 Other problems related to medical facilities and other health care
CPT/HCPCS: 93005; 96372; 96374; 99284; J2250; J3486; 93010; 99283

== ENCOUNTER 2024-05-31 13:38 | Emergency (ER) | payer MEDICAID | END 2024-05-31 19:30 | disposition left against medical advice (07) | LOC: MW.ED 13:38 | DX: Z53.21 Procedure and treatment not carried out due to patient leaving prior to being seen by health care provider (principal) ==

== ENCOUNTER 2024-11-08 20:45 | Emergency (ER) | payer MEDICAID | END 2024-11-09 00:30 | disposition home or self-care (01) | LOC: MW.ED 20:45 | DX: J39.8 Other specified diseases of upper respiratory tract (principal); B97.89 Other viral agents as the cause of diseases classified elsewhere; R51.9 Headache, unspecified; R42 Dizziness and giddiness; Z86.59 Personal history of other mental and behavioral disorders; Z90.710 Acquired absence of both cervix and uterus; Z88.0 Allergy status to penicillin; Z88.8 Allergy status to other drugs, medicaments and biological substances; Z79.899 Other long term (current) drug therapy | CPT/HCPCS: 71045; 71045-26; 87426-QW; 99282; 99284 ==

== ENCOUNTER 2024-12-19 14:15 | Emergency (ER) | payer OTHER, MEDICAID | END 2024-12-19 15:57 | disposition home or self-care (01) | LOC: MW.ED 14:15 | DX: G44.319 Acute post-traumatic headache, not intractable (principal); M54.2 Cervicalgia; F20.9 Schizophrenia, unspecified; Z88.0 Allergy status to penicillin; Z88.1 Allergy status to other antibiotic agents; Z88.8 Allergy status to other drugs, medicaments and biological substances; Z79.899 Other long term (current) drug therapy; V49.49XA Driver injured in collision with other motor vehicles in traffic accident, initial encounter; Y93.89 Activity, other specified | CPT/HCPCS: 70450; 70450-26; 72125; 72125-26; 99282; 99284 ==

== ENCOUNTER 2024-12-29 19:02 | Emergency (ER) | payer MEDICAID ==
[2024-12-29 19:32] LABS: BASOPHILS ABSOLUTE AUTO 0.10 K/uL (0.00-0.20); BASOPHILS PERCENT AUTO 1.0 % (0.0-1.0); EOSINOPHILS ABSOLUTE AUTO 0.18 K/uL (0.00-0.45); EOSINOPHILS PERCENT AUTO 1.7 % (0.0-6.0); IMMATURE GRAN ABSOLUTE AUTO 0.03 K/uL (0.00-0.05); IMMATURE GRAN PERCENT AUTO 0.3 % (0.0-0.4); LYMPHOCYTES ABSOLUTE AUTO 2.98 K/uL (1.00-4.80); LYMPHOCYTES PERCENT AUTO 28.5 % (24.0-44.0); MEAN PLATELET VOLUME 8.6 fL (9.4-12.3); MONOCYTES ABSOLUTE AUTO 0.78 K/uL (0.00-0.80); MONOCYTES PERCENT AUTO 7.4 % (0.0-8.0); NEUTROPHILS ABSOLUTE AUTO 6.40 K/uL (1.80-7.70); NEUTROPHILS PERCENT AUTO 61.1 % (41.0-71.0); NRBC ABSOLUTE 0.00 K/uL (0.00-0.02); NRBC PERCENT 0.0 /100WBC (0.0-0.2); PLATELET COUNT,PLT 255 K/uL (150-400); RED BLOOD CELL COUNT 4.43 M/uL (4.10-5.30); WHITE BLOOD CELL COUNT,WBC 10.47 K/uL (3.9-11.3)
[2024-12-29 19:46] LABS: A/G RATIO 1.0 (0.9-1.6); ALANINE AMINOTRANSFERASE,ALT 38 IU/L (14-63); ASPARTATE AMNIOTRANSFERASE,AST 25 IU/L (15-37); BILIRUBIN TOTAL 0.5 mg/dL (0.2-1.0); BLOOD UREA NITROGEN,BUN 10 mg/dL (7.0-18.0); CARBON DIOXIDE,CO2 28.9 mmol/L (21.0-32.0); CHLORIDE,CL 107 mmol/L (98-107); CREATININE 1.0 mg/dL (0.6-1.0); EST CRCL DRUG DOSING (CG) 65.22 mL/min; GLUCOSE RANDOM 93 mg/dL (74-106); POTASSIUM,K 4.2 mmol/L (3.5-5.1); PROTEIN TOTAL,TP 6.5 g/dL (6.4-8.2); SODIUM,NA 142 mmol/L (136-145)
[2024-12-29 19:48] LABS: ESTIMATED GFR 73 mL/min (>60); ETHANOL BLOOD MEDICAL < 3.0 mg/dL
[2024-12-29] MEDS: Iopamidol 755 MG/ML 500 ML Multipack Bottle IVPUSH STA (20:46)
== END 2024-12-29 21:56 | disposition home or self-care (01) ==
LOC: MW.ED 19:02
DX: R42 Dizziness and giddiness (principal); R51.9 Headache, unspecified; Z88.0 Allergy status to penicillin; Z88.8 Allergy status to other drugs, medicaments and biological substances; Z90.710 Acquired absence of both cervix and uterus
CPT/HCPCS: 36415; 70450; 70496; 70498; 80053; 80307; 84484; 84703; 85025; 93005; 96360; 96361; 99285; A9270; J7030; Q9967; 93010; 99284